=== PATIENT | female | born 2000 | race Hispanic/Latino ===

== ENCOUNTER 2023-07-25 10:56 | Observation (INO) | payer MEDICAID ==
[~2023-07-25] VITALS: Ht 165.1 cm; Wt 105.7 kg
[2023-07-25 11:32] LABS: APPEARANCE,URINE CLEAR (CLEAR); BILIRUBIN,URINE NEGATIVE (NEGATIVE); COLOR,URINE COLORLESS (YELLOW); GLUCOSE, URINE (UA) NEGATIVE (NEGATIVE); KETONES,URINE NEGATIVE (NEGATIVE); LEUKOCYTE ESTERASE ,URINE 75 Leu/uL (NEGATIVE); NITRATE,URINE NEGATIVE (NEGATIVE); OCCULT BLOOD,URINE NEGATIVE (NEGATIVE); PROTEIN,URINE NEGATIVE (NEGATIVE); UROBILINOGEN,URINE 0.2 mg/dL (0.2-1.0)
[2023-07-25 11:34] LABS: ADD UA MICROSCOPIC YES
[2023-07-25 12:27] LABS: BACTERIA,URINE RARE /HPF (None Seen); MUCUS,URINE RARE LPF (None Seen); SQUAMOUS EPITHELIAL CELL,UR MANY /HPF (0-2)
== END 2023-07-25 13:16 | disposition home or self-care (01) ==
LOC: LDH 10:56 → INTOOBSV 10:56
PROVIDERS: ADMIT Obstetrics & Gynecology; ATTEND Obstetrics & Gynecology
DX: O42.913 Preterm premature rupture of membranes, unspecified as to length of time between rupture and onset of labor, third trimester (principal); Z3A.31 31 weeks gestation of pregnancy; Z79.899 Other long term (current) drug therapy
CPT/HCPCS: 87088; 81001; 76819; G0378 ×2; G0379

== ENCOUNTER 2023-08-08 20:13 | Observation (INO) | payer MEDICAID ==
[~2023-08-08] VITALS: Ht 165.1 cm; Wt 104.8 kg
[2023-08-08 20:23] VITALS: BP 136/87; PULSE 119; RESP 20
[2023-08-08] MEDS: LACTATED RINGERS 1000ML IV PRN ×2 (21:28→23:17)
[2023-08-08 21:33] LABS: APPEARANCE,URINE CLEAR (CLEAR); BILIRUBIN,URINE NEGATIVE (NEGATIVE); COLOR,URINE YELLOW (YELLOW); GLUCOSE, URINE (UA) NEGATIVE (NEGATIVE); KETONES,URINE >=80 mg/dL (NEGATIVE); LEUKOCYTE ESTERASE ,URINE NEGATIVE Leu/uL (NEGATIVE); NITRATE,URINE NEGATIVE (NEGATIVE); OCCULT BLOOD,URINE NEGATIVE (NEGATIVE); PROTEIN,URINE 50 mg/dL (NEGATIVE); UROBILINOGEN,URINE 0.2 mg/dL (0.2-1.0)
[2023-08-08 21:40] LABS: ADD UA MICROSCOPIC YES
[2023-08-08 22:02] LABS: BACTERIA,URINE RARE /HPF (None Seen); MUCUS,URINE RARE LPF (None Seen); RBC,URINE 0-1 /HPF (0-1); SQUAMOUS EPITHELIAL CELL,UR MOD /HPF (0-2)
[2023-08-08] MEDS ORDERED: TERBUTALINE SULFATE VIAL 1MG/ML SQ ONE (22:18)
[2023-08-08] MEDS ORDERED: PROMETHAZINE HCL 25 MG/ML 1ML AMPULE IM ONE ×2 (22:20→22:30)
[2023-08-08] MEDS ORDERED: TERBUTALINE SULFATE VIAL 1MG/ML SQ SCH (22:30)
== END 2023-08-08 23:30 | disposition home or self-care (01) ==
LOC: EDH 20:13 → LDH 20:34
PROVIDERS: ADMIT Obstetrics & Gynecology; ATTEND Obstetrics & Gynecology
DX: O21.2 Late vomiting of pregnancy (principal); O26.893 Other specified pregnancy related conditions, third trimester; R10.9 Unspecified abdominal pain; Z3A.34 34 weeks gestation of pregnancy
CPT/HCPCS: 96372; 96360; 96361; 81001; G0378 ×3; G0379; J3105; J2550; J7120 ×2